=== PATIENT | male | born 1980 | race Caucasian/White ===

== ENCOUNTER 2023-02-09 04:17 | Emergency (ER) | payer OTHER ==
[2023-02-09] MEDS ORDERED: Sodium Chloride 0.9% 1,000 ML IV ONE (04:22)
[2023-02-09] MEDS ORDERED: Sodium Chloride 0.9% 10 ML Syringe FLUSH PRN (04:22)
[2023-02-09 04:37] LABS: BASOPHILS ABSOLUTE AUTO 0.07 10^3/uL (0.00-0.10); BASOPHILS PERCENT AUTO 0.5 % (0.0-1.0); EOSINOPHILS ABSOLUTE AUTO 0.23 10^3/uL (0.10-0.30); EOSINOPHILS PERCENT AUTO 1.8 % (1.0-3.0); HEMATOCRIT 45.3 % (40.0-52.0); HEMOGLOBIN 15.3 g/dL (13.0-17.0); IMMATURE GRAN ABSOLUTE AUTO 0.08 10^3/uL (0.00-0.50); IMMATURE GRAN PERCENT AUTO 0.6 % (0.0-5.0); LYMPHOCYTES ABSOLUTE AUTO 2.55 10^3/uL (1.00-4.00); LYMPHOCYTES PERCENT AUTO 19.6 % (20.0-40.0); MEAN CORPUSCULAR HEMOGLOBIN 28.7 pg (27.0-31.0); MEAN CORPUSCULAR HGB CONC 33.8 g/dL (32.0-36.0); MEAN PLATELET VOLUME 9.8 fL (7.4-10.4); MONOCYTES ABSOLUTE AUTO 0.81 10^3/uL (0.10-0.80); MONOCYTES PERCENT AUTO 6.2 % (2.0-8.0); NEUTROPHILS ABSOLUTE AUTO 9.25 10^3/uL (2.50-7.00); NEUTROPHILS PERCENT AUTO 71.3 % (50.0-70.0); PLATELET COUNT,PLT 288 10^3/uL (150-400); RED BLOOD CELL COUNT 5.33 10^6/uL (4.50-6.00); RED CELL DISTRIBUTION WIDTH 12.2 % (11.5-14.5); WHITE BLOOD CELL COUNT,WBC 12.99 10^3/uL (5.00-10.00)
[2023-02-09 04:38] LABS: APPEARANCE,URINE CLEAR (CLEAR); BILIRUBIN,URINE NEGATIVE (NEGATIVE); COLOR,URINE YELLOW (YELLOW); GLUCOSE,URINE NEGATIVE (NEGATIVE); KETONES,URINE NEGATIVE (NEGATIVE); LEUKOCYTE ESTERASE,URINE NEGATIVE (NEGATIVE); NITRITE,URINE NEGATIVE (NEGATIVE); OCCULT BLOOD,URINE NEGATIVE (NEGATIVE); PROTEIN,URINE NEGATIVE (NEGATIVE); UROBILINOGEN,URINE 0.2 E.U./dL (0.2-1.0)
[2023-02-09 04:39] LABS: BACTERIA,URINE RARE /HPF (NONE TO FEW); EPITHELIAL CELLS,URINE RARE /LPF; RBC,URINE 0-5 /HPF (0-5); WBC,URINE 0-5 /HPF (0-5)
[2023-02-09 04:55] LABS: ALBUMIN 3.96 g/dL (3.40-5.00); BILIRUBIN TOTAL 0.2 mg/dL (0.2-1.0); CALCIUM 8.4 mg/dL (8.7-10.3); CREATININE 0.78 mg/dL (0.51-1.17); EST CRCL DRUG DOSING (CG) 138.18 mL/min; PROTEIN TOTAL,TP 7.9 g/dL (6.4-8.2)
[2023-02-09] MEDS ORDERED: traMADol 50 MG Tab PO ONE (06:05)
[2023-02-09] MEDS ORDERED: Ketorolac 30 MG/ML SDV IVPUSH ONE (06:05)
[2023-02-09 06:26] VITALS: BP 110/67; PULSE 82
== END 2023-02-09 06:32 | disposition home or self-care (01) ==
LOC: KA.ED 04:17
DX: S20.212A Contusion of left front wall of thorax, initial encounter (principal); M54.50 Low back pain, unspecified; W10.9XXA Fall (on) (from) unspecified stairs and steps, initial encounter
CPT/HCPCS: 70450; 71045; 71100-LT; 72100; 72125; 72170; 80053; 80307; 81001; 85025; 96361; 96374; 99284; 99284-25; A9270-GY; J1885; J7030